=== PATIENT | female | born 1990 | race Hispanic/Latino ===

== ENCOUNTER 2018-10-20 23:04 | Emergency (ER) | payer SELFPAY | END 2018-10-20 23:14 | disposition left against medical advice (07) | LOC: EDH 23:04 | DX: Z53.21 Procedure and treatment not carried out due to patient leaving prior to being seen by health care provider (principal) ==

== ENCOUNTER 2018-10-21 19:40 | Emergency (ER) | payer OTHER ==
[2018-10-21 20:13] LABS: BASOPHILS % (AUTO) 0.9 % (0.0-5.0); EOSINOPHILS % (AUTO) 4.1 % (0.0-8.0); LYMPHOCYTES % (AUTO) 27.3 % (21.0-51.0); MEAN CORPUSCULAR HEMOGLOBIN 19.9 pg (27.0-33.0); MEAN CORPUSCULAR HGB CONC 30.6 g/dL (32.0-36.0); MONOCYTES % (AUTO) 11.9 % (3.0-13.0); NEUTROPHILS % (AUTO) 55.8 % (40.0-77.0); NUCLEATED RED BLOOD CELLS 0.1 % (0.0-0.19); PLATELET COUNT (AUTO) 355 K/uL (130-400); RED BLOOD CELL COUNT(AUTO) 5.23 MIL/uL (4.00-5.50); RED CELL DISTRIBUTION WIDTH 20.3 % (11.0-15.5); WHITE BLOOD COUNT (AUTO) 6.2 K/uL (4.8-10.8)
[2018-10-21 20:25] LABS: CREATININE 0.7 mg/dL (0.5-1.5); POTASSIUM 3.8 mmol/L (3.5-5.1)
[2018-10-21 20:29] LABS: ALBUMIN 3.1 g/dL (3.5-5.0); BILIRUBIN,TOTAL 0.1 mg/dL (0.2-1.0); TOTAL PROTEIN, SERUM 7.6 g/dL (6.0-8.3)
[2018-10-21] MEDS ORDERED: SODIUM CHLORIDE 0.9% 1000ML 1,000 ML IV ONE (20:37)
[2018-10-21] MEDS ORDERED: ONDANSETRON HCL 4 MG/2 ML VIAL ONE (20:37)
[2018-10-21 20:38] LABS: RAPID GROUP A STREP NEGATIVE (NEGATIVE)
[2018-10-21 20:38] LABS: APPEARANCE,URINE Cloudy (CLEAR); BILIRUBIN,URINE Negative (NEGATIVE); COLOR,URINE Orange (YELLOW); GLUCOSE, URINE (UA) Negative (NEGATIVE); KETONES,URINE Negative (NEGATIVE); LEUKOCYTE ESTERASE ,URINE Small (NEGATIVE); NITRATE,URINE Negative (NEGATIVE); OCCULT BLOOD,URINE Large (NEGATIVE); PROTEIN,URINE POS 1+ mg/dL (NEGATIVE)
[2018-10-21 20:54] LABS: RBC,URINE >100 /HPF (0-1)
[2018-10-21 20:55] LABS: BACTERIA,URINE None Seen /HPF (None Seen)
== END 2018-10-21 21:53 | disposition home or self-care (01) ==
LOC: EDH 19:40
DX: N39.0 Urinary tract infection, site not specified (principal); R05 Cough; R11.2 Nausea with vomiting, unspecified; F41.9 Anxiety disorder, unspecified; F32.9 Major depressive disorder, single episode, unspecified; I10 Essential (primary) hypertension; Z88.8 Allergy status to other drugs, medicaments and biological substances
CPT/HCPCS: 36415; 71045; 80053; 81001; 83605; 85025; 87040 ×2; 87804 ×2; 87880; 96361; 96374; 99285; J2405; J7030

== ENCOUNTER 2023-10-12 10:55 | Inpatient (IN) | payer OTHER ==
[~2023-10-12] VITALS: Ht 160 cm; Wt 116.6 kg
[2023-10-12] MEDS: CLINDAMYCIN IVPB 300MG/50ML 50 ML IV SCH (11:14)
[2023-10-12 11:35] LABS: CREATININE 0.6 mg/dL (0.5-1.0); POTASSIUM 3.5 mmol/L (3.5-5.1)
[2023-10-12 12:12] LABS: HEMATOCRIT 21.5 % (36-48); MEAN CORPUSCULAR HEMOGLOBIN 13.4 pg (27.0-33.0); MEAN CORPUSCULAR HGB CONC 23.7 g/dL (32.0-36.0); MEAN CORPUSCULAR VOLUME 56.6 fL (79-99); NUCLEATED RED BLOOD CELLS 1.5 % (0.0-0.19); PLATELET COUNT (AUTO) 384 K/uL (130-400); RED CELL DISTRIBUTION WIDTH 24.8 % (11.0-15.5); WHITE BLOOD COUNT (AUTO) 6.8 K/uL (4.8-10.8)
[2023-10-12 12:50] LABS: BAND NEUTROPHILS % (MANUAL) 1 % (0-2); EOSINOPHILS % (MANUAL) 3 % (1-6); LYMPHOCYTES % (MANUAL) 21 % (22-44); MAN.DIFF COMMENT-IMPRESSION MANUAL DIFFERENTIAL; MONOCYTES % (MANUAL) 5 % (2-9); PLATELET MORPHOLOGY COMMENT ADEQUATE; SEGMENTED NEUTROPHILS % 70 % (40-70); TOTAL CELLS COUNTED 100
[2023-10-12] MEDS ORDERED: IOHEXOL-350 75 ML VIAL IV ONE (14:13)
[2023-10-12 18:20] LABS: RETICULOCYTE % (AUTO) 1.32 % (0.42-2.23)
[2023-10-12 18:45] LABS: ADD UA MICROSCOPIC YES; APPEARANCE,URINE CLEAR (CLEAR); BILIRUBIN,URINE NEGATIVE (NEGATIVE); COLOR,URINE LIGHT-YELLOW (YELLOW); GLUCOSE, URINE (UA) NEGATIVE (NEGATIVE); KETONES,URINE NEGATIVE (NEGATIVE); LEUKOCYTE ESTERASE ,URINE 500 Leu/uL (NEGATIVE); NITRATE,URINE NEGATIVE (NEGATIVE); OCCULT BLOOD,URINE NEGATIVE (NEGATIVE); PH,URINE 6.5 (5.0-8.0); PROTEIN,URINE NEGATIVE (NEGATIVE); UROBILINOGEN,URINE 0.2 mg/dL (0.2-1.0)
[2023-10-12 18:47] LABS: % IRON SATURATION 2.4 % (22-44)
[2023-10-12 18:51] LABS: BACTERIA,URINE RARE /HPF (None Seen); MUCUS,URINE RARE LPF (None Seen); SQUAMOUS EPITHELIAL CELL,UR FEW /HPF (0-2); WBC,URINE 26-50 /HPF (0-1)
[2023-10-12] MEDS: ACETAMINOPHEN 500 MG TABLET PO PRN (18:56)
[2023-10-12 19:08] LABS: THYROID STIMULATING HORMONE 3.11 uIU/mL (0.36-3.74)
[2023-10-12] MEDS: 0.9%NACL 1000ML 1,000 ML IV ONE (19:21)
[2023-10-12 19:22] VITALS: TEMP 99.1
[2023-10-12 20:10] VITALS: BP 148/83; PULSE 95; RESP 16
[2023-10-12 21:50] LABS: HEMATOCRIT 28.6 % (36-48)
[2023-10-12 22:01] LABS: INR 1.07 (0.85-1.15); PROTHROMBIN TIME 11.5 SEC (9.6-11.6)
[2023-10-12 22:02] LABS: PARTIAL THROMBOPLASTIN TIME 23.6 SEC (26.3-35.5)
[2023-10-12 23:00] VITALS: BP 149/73; PULSE 75; RESP 16
[2023-10-13 03:00] VITALS: BP 138/78; PULSE 71; RESP 16
[2023-10-13 07:33] LABS: BASOPHILS # (AUTO) 0.05 K/uL (0.00-0.20); BASOPHILS % (AUTO) 0.7 % (0.0-5.0); EOSINOPHILS # (AUTO) 0.17 K/uL (0.00-0.70); EOSINOPHILS % (AUTO) 2.5 % (0.0-8.0); IMMATURE GRANULOCYTE ABSOLUTE 0.02 K/uL (0-1); MEAN CORPUSCULAR HEMOGLOBIN 17.2 pg (27.0-33.0); MEAN CORPUSCULAR HGB CONC 26.8 g/dL (32.0-36.0); MEAN CORPUSCULAR VOLUME 64.1 fL (79-99); MONOCYTES # (AUTO) 0.4 K/uL (0.1-1.0); MONOCYTES % (AUTO) 5.5 % (3.0-13.0); NEUTROPHILS # (AUTO) 4.1 K/uL (1.8-7.7); NUCLEATED RED BLOOD CELLS 1.9 % (0.0-0.19); PLATELET COUNT (AUTO) 365 K/uL (130-400); RED BLOOD CELL COUNT(AUTO) 4.37 MIL/uL (4.00-5.50); RED CELL DISTRIBUTION WIDTH 30.1 % (11.0-15.5); WHITE BLOOD COUNT (AUTO) 6.7 K/uL (4.8-10.8)
[2023-10-13 07:50] LABS: CREATININE 0.6 mg/dL (0.5-1.0); POTASSIUM 3.6 mmol/L (3.5-5.1)
[2023-10-13 08:00] VITALS: BP 142/84; PULSE 88; RESP 18
[2023-10-13 08:45] VITALS: O2SAT 96
[2023-10-13] MEDS ORDERED: ONDANSETRON 4MG INJ IVP PRN (09:00)
[2023-10-13] MEDS ORDERED: ACETAMINOPHEN 325 MG TAB PO PRN ×2 (09:00)
[2023-10-13] MEDS: CLINDAMYCIN IVPB 600MG/50ML 50 ML IV SCH (11:11)
[2023-10-13 12:00] VITALS: BP 139/75; PULSE 79; RESP 18
[2023-10-13] MEDS: AMP/SULBAC 3GM+NS 100ML 100 ML IV SCH ×2 (15:09→23:50)
[2023-10-13 16:00] VITALS: BP 148/82; PULSE 85; RESP 18
[2023-10-13 16:11] LABS: CHOLESTEROL 90 mg/dL (<200); HDL CHOLESTEROL 42 mg/dL (35-85); LDL DIRECT 42 mg/dL (0-99); TRIGLYCERIDES 61 mg/dL (30-200)
[2023-10-13 20:00] VITALS: BP 133/80; PULSE 84; RESP 18
[2023-10-13] MEDS: ACETAMINOPHEN WITH CODEINE 1 TAB TAB PO PRN (21:07)
[2023-10-14] VITALS (7 sets, daily range): BP systolic 121–142; BP diastolic 66–88; PULSE 67–85; RESP 16–20
[2023-10-14 09:27] LABS: MEAN CORPUSCULAR HEMOGLOBIN 17.5 pg (27.0-33.0); MEAN CORPUSCULAR HGB CONC 26.6 g/dL (32.0-36.0); MEAN CORPUSCULAR VOLUME 66.1 fL (79-99); NUCLEATED RED BLOOD CELLS 1.3 % (0.0-0.19); RED BLOOD CELL COUNT(AUTO) 4.39 MIL/uL (4.00-5.50); WHITE BLOOD COUNT (AUTO) 5.5 K/uL (4.8-10.8)
[2023-10-14 09:45] LABS: CREATININE 0.6 mg/dL (0.5-1.0); POTASSIUM 3.4 mmol/L (3.5-5.1)
[2023-10-14] MEDS: IRON SUCROSE COMPLEX 100 MG/5 ML VIAL IV SCH (18:21)
[2023-10-14] MEDS: LEVOFLOXACIN 500 MG TABLET PO SCH (18:21)
[2023-10-15] VITALS (7 sets, daily range): BP systolic 131–152; BP diastolic 70–98; PULSE 74–90; RESP 18–20; O2SAT 99
[2023-10-15 04:37] LABS: MEAN CORPUSCULAR HEMOGLOBIN 17.4 pg (27.0-33.0); MEAN CORPUSCULAR HGB CONC 26.8 g/dL (32.0-36.0); NUCLEATED RED BLOOD CELLS 1.2 % (0.0-0.19); RED BLOOD CELL COUNT(AUTO) 4.31 MIL/uL (4.00-5.50); RED CELL DISTRIBUTION WIDTH 31.7 % (11.0-15.5); WHITE BLOOD COUNT (AUTO) 6.5 K/uL (4.8-10.8)
[2023-10-15 04:59] LABS: ALBUMIN 2.8 g/dL (3.5-5.0); BILIRUBIN,TOTAL 0.5 mg/dL (0.2-1.0); CREATININE 0.6 mg/dL (0.5-1.0); POTASSIUM 3.6 mmol/L (3.5-5.1); TOTAL PROTEIN, SERUM 6.7 g/dL (6.0-8.3)
[2023-10-15] MEDS: FOLIC ACID 1 MG TABLET PO ONE (09:30)
[2023-10-15] MEDS: CYANOCOBALAMIN (VITAMIN B-12) 1,000 MCG TABLET PO SCH (09:30)
[2023-10-15] MEDS: FOLIC ACID 1 MG TABLET ONE (18:07)
[2023-10-15] MEDS: CYANOCOBALAMIN (VITAMIN B-12) 1,000 MCG TABLET ONE (18:19)
[2023-10-16] VITALS (7 sets, daily range): BP systolic 116–141; BP diastolic 64–85; PULSE 70–79; RESP 17–18; O2SAT 97–98
[2023-10-16 05:26] LABS: HEMATOCRIT 28.6 % (36-48); MEAN CORPUSCULAR HEMOGLOBIN 17.3 pg (27.0-33.0); MEAN CORPUSCULAR HGB CONC 26.2 g/dL (32.0-36.0); MEAN CORPUSCULAR VOLUME 66.1 fL (79-99); NUCLEATED RED BLOOD CELLS 0.7 % (0.0-0.19); RED BLOOD CELL COUNT(AUTO) 4.33 MIL/uL (4.00-5.50); RED CELL DISTRIBUTION WIDTH 32.8 % (11.0-15.5); WHITE BLOOD COUNT (AUTO) 5.7 K/uL (4.8-10.8)
[2023-10-16 05:56] LABS: CREATININE 0.6 mg/dL (0.5-1.0); POTASSIUM 3.8 mmol/L (3.5-5.1)
[2023-10-16] MEDS: FOLIC ACID 1 MG TABLET PO SCH (08:31)
[2023-10-16] MEDS: CYANOCOBALAMIN (VITAMIN B-12) 1,000 MCG TABLET PO SCH (08:31)
[2023-10-17 00:21] VITALS: BP 129/73; PULSE 86; RESP 18
[2023-10-17 04:40] VITALS: BP 115/63; PULSE 83; RESP 18
[2023-10-17 04:45] LABS: BASOPHILS # (AUTO) 0.07 K/uL (0.00-0.20); EOSINOPHILS # (AUTO) 0.22 K/uL (0.00-0.70); EOSINOPHILS % (AUTO) 3.2 % (0.0-8.0); HEMATOCRIT 29.6 % (36-48); IMMATURE GRANULOCYTE ABSOLUTE 0.02 K/uL (0-1); LYMPHOCYTES # (AUTO) 1.8 K/uL (1.0-4.8); LYMPHOCYTES % (AUTO) 26.1 % (21.0-51.0); MEAN CORPUSCULAR HEMOGLOBIN 18.4 pg (27.0-33.0); MONOCYTES # (AUTO) 0.4 K/uL (0.1-1.0); MONOCYTES % (AUTO) 6.2 % (3.0-13.0); NEUTROPHILS # (AUTO) 4.4 K/uL (1.8-7.7); NEUTROPHILS % (AUTO) 63.2 % (40.0-77.0); NUCLEATED RED BLOOD CELLS 0.4 % (0.0-0.19); PLATELET COUNT (AUTO) 359 K/uL (130-400); RED BLOOD CELL COUNT(AUTO) 4.35 MIL/uL (4.00-5.50); RED CELL DISTRIBUTION WIDTH 34.2 % (11.0-15.5); WHITE BLOOD COUNT (AUTO) 6.9 K/uL (4.8-10.8)
[2023-10-17 04:58] LABS: ALBUMIN 2.8 g/dL (3.5-5.0); BILIRUBIN,TOTAL 0.4 mg/dL (0.2-1.0); CREATININE 0.6 mg/dL (0.5-1.0); MAGNESIUM 1.9 mg/dL (1.80-2.40); POTASSIUM 3.6 mmol/L (3.5-5.1); TOTAL PROTEIN, SERUM 6.6 g/dL (6.0-8.3)
[2023-10-17 08:00] VITALS: O2SAT 98
[2023-10-17 08:10] VITALS: BP 145/88; PULSE 82; RESP 18
[2023-10-17 11:25] VITALS: BP 146/92; PULSE 91; RESP 18
[2023-10-17] MEDS ORDERED: FOLI1 PO (12:51)
[2023-10-17] MEDS ORDERED: CYAN-52 PO (12:51)
== END 2023-10-17 15:35 | disposition home or self-care (01) | DRG 603 ==
LOC: EDH 10:55 → EDHIP 10:56 → 4CH 20:46
PROVIDERS: ADMIT Internal Medicine; ATTEND Internal Medicine
PROC: 30233N1 Transfusion of Nonautologous Red Blood Cells into Peripheral Vein, Percutaneous Approach (ICD-10-PCS; principal; 2023-10-12)
DX: L03.211 Cellulitis of face (principal); Z68.42 Body mass index [BMI] 45.0-49.9, adult; N39.0 Urinary tract infection, site not specified; D50.9 Iron deficiency anemia, unspecified; N92.1 Excessive and frequent menstruation with irregular cycle; E66.01 Morbid (severe) obesity due to excess calories; B96.20 Unspecified Escherichia coli [E. coli] as the cause of diseases classified elsewhere; K04.7 Periapical abscess without sinus; N92.0 Excessive and frequent menstruation with regular cycle; Z83.2 Family history of diseases of the blood and blood-forming organs and certain disorders involving the immune mechanism; Z88.8 Allergy status to other drugs, medicaments and biological substances
CPT/HCPCS: 36415; 70487; 76856; 80048; 80053; 80061; 81001; 81025; 82270; 82306; 82607; 82728; 83036; 83735; 84145; 84443; 84703; 85014; 85018; 85025; 85027; 85610; 85651; 85730; 86140; 86850; 86900; 86901; 86923; 87086; 87186; 96365; G0378; J0295; J1756; J3490; J7030; P9016; Q9967